=== PATIENT | male | born 1945 | race Caucasian/White ===

== ENCOUNTER 2016-12-26 21:10 | Emergency (ER) | payer MEDICARE, OTHER ==
--- NOTE | ~2016-12-26 | DS ---
PATIENT'S NAME: SERGE AGUILAR [facility] AGE: 71 Y [address] ROOM: [place] [address] LOCATION: [facility] ADMIT DATE: 12/26/2016 Discharge Summary DISCHARGE DATE: 12/26/2016 FAMILY PHYSICIAN: Physician, Unknown ATTENDING PHYSICIAN: Geo Chong DISCHARGE DIAGNOSIS: Fall. HOSPITAL COURSE: Serge Aguilar is a very pleasant 71-year-old gentleman, who was transferred to us after a fall at 4:00 p.m. today about 15 feet while he was working on a ladder, trimming some trees. He had positive LOC. He thinks he hit the close wire on the way down. It flipped him at head first and he hit the head first. By the time he was transferred to us, he was alert and oriented x3, amnestic to the event but otherwise completely intact. No neurological symptoms. He was found to have an open right tib-fib fractures, some left foot pain, bruising on the left foot. X-rays were done and were pending official reads. He had a CT of the head and was negative. CT of the neck showed a Steven's fracture at C1 on the left side and C2 left lateral body extending to the transverse foramina. CTA showed occlusion of the vertebral artery at that location. He also had nondisplaced left rib fractures 4-5. Since he required anticoagulation, we needed to be able to get him fixed IAN, but unfortunately, Dr. Wright came and evaluated the patient and splinted him in cast. I was unable to fix him tonight because he does not have the appropriate rods. Those have been ordered, but would not get here until tomorrow. Because of this delay and the fact that we need to get him going on anticoagulation, the decision was made with Dr. Mcmahon and Dr. Wright to transfer to the [facility]. We called Dr. Moreno who accepted him at [facility], and he will be life flighted there. We immediately start heparin drip before he leaves to start treatment of his left vertebral occlusion. He remains in a cervical collar. FINAL DIAGNOSES: Include left nondisplaced 4th, 5th rib fractures. Open right tib-fib fractures. Neuro intact. Pulses distally are good. He has been splinted by orthopedics Dr. Wright. He has C1 and C2 fracture with occlusion of the vertebra at the location of the fracture. On anticoagulation and cervical collar in place. Left foot pain, films pending. I explained the reason for the transfer to him and his family, and they are agreeable to this plan. We will get him transfer to the [facility] as soon as possible. CELESTE ALVARADO MD (JAKE) PATIENT'S NAME: SERGE AGUILAR [facility] AGE: 71 Y [address] ROOM: [place] [address] LOCATION: [facility] ADMIT DATE: 12/26/2016 Discharge Summary DISCHARGE DATE: 12/26/2016 FAMILY PHYSICIAN: Physician, Unknown ATTENDING PHYSICIAN: Geo Chong/april /[id number] CC: Isai Moreno MD d: t: 12/27/16 1244, DISCHARGE SUMMARY
--- NOTE | ~2016-12-26 | CON ---
PATIENT'S NAME: SERGE AGUILAR [facility] AGE: 71 Y [address] ROOM: [place] [address] LOCATION: [facility] ADMIT DATE: Consultation DISCHARGE DATE: FAMILY PHYSICIAN: Physician, Unknown ATTENDING PHYSICIAN: Geo Chong Corrected procedure 01/17/17 AO DATE OF CONSULTATION: 12/26/2016 ORTHOPEDIC CONSULTATION CHIEF COMPLAINT: Trauma and right leg pain. HISTORY OF PRESENT ILLNESS: Mr. Aguilar is a pleasant 71-year-old gentleman, who presented to the emergency room as a trauma by [employer] [facility] after falling 15 feet and breaking his leg. He also injured his neck. I was consulted as plain images at an outside institution indicated evidence of an open right distal tibia and fibula fractures. On presentation, the patient reports neck pain and right leg pain. He reports that he had a fall. He is lucid and conversing with me in the ER at the bedside. He has a C-spine immobilizer in place. The patient denies any previous trauma or surgery to the right leg. He notes that he is in severe pain. Aggravating factors include moving leg, manipulation of limb. Alleviating factors include rest, ice, and immobilization. Currently, the patient denies any constitutional symptoms such as fever, chills, or night sweats. He also denies any dizziness, chest pain, shortness of breath, blurred vision, nausea, vomiting, or diarrhea. REVIEW OF SYSTEMS: A 10-point review of systems is otherwise mentioned above in the HPI. The rest is negative aside from what is noted above. PAST MEDICAL HISTORY: Includes hypertension, cervical spine degenerative disease, hyperlipidemia. PAST SURGICAL HISTORY: Includes cervical spinal fusion at 2 levels. SOCIAL HISTORY: The patient still works. He lives in home with his home. He denies any alcohol, tobacco, or illicit drug use. FAMILY HISTORY: He reports hypertension in the maternal and paternal side of the family. PATIENT'S NAME: SERGE AGUILAR [facility] AGE: 71 Y [address] ROOM: [place], [place] [address] LOCATION: [facility] ADMIT DATE: Consultation DISCHARGE DATE: FAMILY PHYSICIAN: Physician, Unknown ATTENDING PHYSICIAN: Geo Chong ALLERGIES: NO KNOWN DRUG ALLERGIES. MEDICATIONS: Currently pending. VITAL SIGNS: Currently pending. GENERAL: The patient is awake and alert and oriented x3. He is in acute distress. He is complaining of neck and right leg pain. He is actively conversing with me at the bedside. HEENT: Normocephalic and atraumatic. Extraocular movements are intact. PERRLA. Moist mucous membranes. Oropharyngeal airway is clear. NECK: Supple. Trachea is in the midline. There is tenderness to the posterior cervical region. There is a C-collar in place. CARDIOVASCULAR: Regular rate and rhythm. CHEST: Normal symmetric chest. Respirations are observed bilaterally. ABDOMEN: Soft, nontender, and nondistended. PELVIS: Stable. MUSCULOSKELETAL: Right lower extremity: Focal examination of the patient's right lower extremity reveals that he is grossly neurologically intact distally. Compartments of the thigh, leg, and foot are soft. There is good capillary refill in the toes. There is palpable dorsalis pedal and posterior tibial pulses. There is a less than 1 cm focal lesion at the anterior aspect of the distal one-third region of the tibia, telephone service representative of open fracture. There is bloody drainage. There is deformity noted as well. There is tenderness to palpation at this region of the tibia and fibula. The patient actively range his toes, although he elicits pain in the leg. IMAGING DATA: Plan radiographs were obtained at an outside institution, that reveal evidence of a transverse fracture of the distal third aspect of the tibia and segmental fracture of the right distal one-third of fibula. A CT scan of the cervical spine reveals evidence of previous cervical spinal fusion at 2 levels. There also appears to be evidence of both fractures to C1 and C2. LABORATORY DATA: Laboratory value is pending. PROCEDURE: The patient was sedated. With the assistance of my PA, Husam Edwards PA-C, we performed a closed treatment of tibia/fibula shaft fractures and manipulation and provisional dressing placement and splinting of the right lower extremity. The patient tolerated this well. PATIENT'S NAME: SERGE AGUILAR [facility] AGE: 71 Y [address] ROOM: [place], [place] [address] LOCATION: [facility] ADMIT DATE: Consultation DISCHARGE DATE: FAMILY PHYSICIAN: Physician, Unknown ATTENDING PHYSICIAN: Geo Chong IMPRESSION: 1. Right Gustilo-Gerard type 1 open fracture of the distal tibia and fibula. 2. C1 and C2 cervical spinal fractures with a history of previous cervical spinal fusion, currently immobilized in C-Collar. PLAN: I had a long discussion with the patient in the presence of his regarding the right leg. I am recommending open irrigation and debridement of the leg and definitive tibial intramedullary nailing for fracture fixation. I discussed the risks, benefits, and alternatives to pursuing a surgical intervention with the patient in detail. I discussed the risks of the anesthesia, infection, bleeding, and/or injury to neurovascular structures. We will plan for surgery first thing tomorrow morning at approximately 6 a.m. Currently, I am recommending IV antibiotics and tetanus booster for the patient. He has received 2 g of Ancef today and recently was given a tetanus booster. We have placed a provisional splint and dressing for the wound in the emergency room. The patient tolerated the procedure well. Consent will be placed in the chart. The patient is agreeable to proceeding with surgery. We will plan for surgery as soon as tomorrow morning. The patient will be admitted to the trauma service. He will be nonweightbearing on the right lower extremity. They will hold heparin in anticipation of surgery tomorrow morning. MD MILTON BUSTOS/april /[id number] d: 12/27/162 t: 01/22/17 1257, CONSULTATION REPORT
--- NOTE | ~2016-12-26 | HP ---
PATIENT'S NAME: SERGE AGUILAR [facility] AGE: 71 Y [address] ROOM: [place] [address] LOCATION: [facility] ADMIT DATE: History & Physical DISCHARGE DATE: FAMILY PHYSICIAN: Physician, Unknown ATTENDING PHYSICIAN: Geo Chong DATE OF SERVICE: 12/26/2016 CHIEF COMPLAINT: Fall. HISTORY OF PRESENT ILLNESS: Mr. Aguilar is a very pleasant 71-year-old gentleman, who was trimming the trees today at around 0415 and fell hitting on a close line and flipped on his head and landed mostly on his head. He had positive LOC. He was taken to an outside facility, where initial workup was done, and he was found to have cervical fractures, open right tib-fib, couple of nondisplaced rib fractures, and was sent to us for further management. Upon arrival here, he is alert and oriented x3. Pleasant. Complaining of pain in his left foot, pain in his right leg, and neck pain and some mild chest pain to palpation only. He denies any other associated complaints or events. ALLERGIES: PLEASE SEE HOSPITAL LIST FOR COMPLETE LIST FOR ALLERGIES. HE DOES ADMIT TO AN ALLERGY TO PENICILLIN, ALTHOUGH HE GOT 2 G OF ANCEF AT THE OUTSIDE FACILITY WELL TETANUS AND DID NOT HAVE A REACTION TO THAT. MEDICATIONS: 1. He takes occasional Viagra. 2. He takes Requip for restless legs. 3. He takes Flomax for BPH. PAST MEDICAL HISTORY: BPH, restless legs syndrome. History of anterior cervical fusion, history of cholecystectomy, history of hernia repair, history of basal cell excisions, and history of melanoma excision from his face. Denies any cardiac, pulmonary, hepatic, renal disease or dysfunction. Denies history of DVT or PE. SOCIAL HISTORY: He is . Denies tobacco or alcohol use or abuse. His accompanies him here today. He is clearly quite active as he was cutting a tree at his home earlier today. PATIENT'S NAME: SERGE AGUILAR [facility] AGE: 71 Y [address] ROOM: [place], [place] [address] LOCATION: [facility] ADMIT DATE: History & Physical DISCHARGE DATE: FAMILY PHYSICIAN: Physician, Unknown ATTENDING PHYSICIAN: Geo Chong REVIEW OF SYSTEMS: A full 10-point review of systems as discussed with the patient was negative, except for as discussed above. Specifically, he denies any exertional chest pain, shortness of breath, headache, or vomiting. He denies any motor or sensory abnormality, except for pain with movement of his right ankle. PHYSICAL EXAMINATION: GENERAL: A 71-year-old gentleman, no apparent distress, comes in on an ER stretcher with a backboard and a neck brace. The backboard was removed. Since full cervical precautions, he remains in the neck brace. HEENT: His sclerae are anicteric. NECK: Supple. NEUROLOGIC: His cranial nerves 2 through 12 are grossly intact. Sensation in his face is preserved. His trachea is midline. His cervical collar is in place. There is no tenderness to palpation of the head and neck. No evidence of malocclusion. CARDIAC: Rate and rhythm is regular. LUNGS: His breathing is nonlabored. He has equal breath sounds bilaterally. He has some tenderness to palpation over the left chest wall. ABDOMEN: Soft, nontender, and nondistended. No palpable hernias. PELVIS: Stable to rocking. Hall catheter is in place. RECTAL: Good tone. No blood. EXTREMITIES: Bilateral lower extremities are warm. Brisk capillary refill. He has +2 DPs bilaterally. He has an open grade 1 tib-fib fracture on the right. He has bruising on his left first toe and pain to palpation on the anterior aspect of his proximal forefoot on the left. His motor sensation is grossly intact in all 4 extremities. No sensory abnormalities anywhere. His palpated spine, thoracic, lumbar, and sacral spine, has no abnormalities noted and no pain to palpation. He has a minor abrasion in his left anterior aspect of his lateral foot. No other lacerations are noted. LABORATORY DATA: White count is 12, hemoglobin 14.5, hematocrit 41.9, platelets are 194. INR is 1.07. PTT is 23.5. Sodium 140, potassium 3.8, chloride is 110, CO2 is 21, BUN 17, creatinine 1.0, bilirubin is 0.6, AST is 36, ALT is 23, albumin is 3.8, alkaline phosphatase is 69. Urinalysis shows some occult blood and some trace ketones. Urine screen is only positive for opiates, but he did receive 10 of morphine prior to this being checked at the outside facility. RADIOLOGY EVALUATION: CT scan of the neck shows a comminuted fracture of C1 vertebra on the right side, both anterior and posterior body, consistent with Steven fracture. PATIENT'S NAME: SERGE AGUILAR [facility] AGE: 71 Y [address] ROOM: [place], [place] [address] LOCATION: [facility] ADMIT DATE: History & Physical DISCHARGE DATE: FAMILY PHYSICIAN: Physician, Unknown ATTENDING PHYSICIAN: Geo Chong This extends into the left lateral body of C2 and extending through transverse process with extension into the transverse foramen on a noncontrast CAT scan. CT of the head was normal. CT of the chest, abdomen, and pelvis shows left fourth and fifth nondisplaced rib fractures. No other acute abnormalities. A tib-fib two views bilaterally shows a moderately displaced fracture of the distal right fibula and open fracture of the right tibia. Chest one view was unremarkable. ASSESSMENT AND PLAN: A 71-year-old gentleman, status post fall with injuries as follows: 1. Open right tib-fib fracture, grade 1, been splinted by Dr. Edwards. He already got Ancef and his tetanus at the outside facility. He will go to the OR tomorrow for washout and open reduction and internal fixation. He will remain nonweightbearing until that time. He has a C1 Steven fracture with a C2 left lateral body fracture extending to the transverse process and the left pedicle. We discussed with Dr. Mcmahon. He is going to be coming to see him as soon as he gets out of the OR. He has no neurological sequela noted at this time. We asked Dr. Mcmahon if he wants MRA versus CTA. He said that he does not need an MRA, so we will go ahead and proceed with the CTA. He will remain in cervical precautions until further decisions will be made by Dr. Mcmahon. 2. Nondisplaced left fourth and fifth rib fractures: He was given some appropriate pain control. Otherwise, admit for observation and on pain management. SCDs on the left lower extremity for prophylaxis. Orthopedics has asked that we hold off on heparin subcu at this point. After surgery, we will start this. I discussed this plan with him and his , and they had all their questions answered to their satisfaction. They are agreeable to proceeding with this plan. MD FISH SEQUEIRA (JAKE)/april /[id number] D: 33 HISTORY & PHYSICAL
== END 2016-12-26 23:36 | disposition disaster alternative care site (69) ==
LOC: GACC 21:10 → GICU 22:09 → GACC 23:36
PROC: 2W3QX1Z Immobilization of Right Lower Leg using Splint (ICD-10-PCS; principal; 2016-12-26)
DX: S06.9X9A Unspecified intracranial injury with loss of consciousness of unspecified duration, initial encounter (principal); S22.42XA Multiple fractures of ribs, left side, initial encounter for closed fracture; S12.000A Unspecified displaced fracture of first cervical vertebra, initial encounter for closed fracture; S12.100A Unspecified displaced fracture of second cervical vertebra, initial encounter for closed fracture; S82.201A Unspecified fracture of shaft of right tibia, initial encounter for closed fracture; S82.401A Unspecified fracture of shaft of right fibula, initial encounter for closed fracture; W11.XXXA Fall on and from ladder, initial encounter; Y93.H2 Activity, gardening and landscaping
CPT/HCPCS: J1644; J2270; J3010; Q9967

== ENCOUNTER → 2016-12-26 | Outpatient (CLI) | payer MEDICARE, OTHER | END | disposition disaster alternative care site (69) | LOC: GAMB 21:05 | DX: S19.9XXA Unspecified injury of neck, initial encounter (principal); W19.XXXA Unspecified fall, initial encounter | CPT/HCPCS: A0425; A0428 ==

== ENCOUNTER → 2016-12-26 | Outpatient (CLI) | payer MEDICARE, OTHER | END | disposition disaster alternative care site (69) | LOC: GAIR 23:44 | DX: S15.109A Unspecified injury of unspecified vertebral artery, initial encounter (principal); S82.2 Fracture of shaft of tibia; S12.000A Unspecified displaced fracture of first cervical vertebra, initial encounter for closed fracture; S12.100A Unspecified displaced fracture of second cervical vertebra, initial encounter for closed fracture; M54.9 Dorsalgia, unspecified; M54.2 Cervicalgia; M79.604 Pain in right leg; G89.29 Other chronic pain; I77.74 Dissection of vertebral artery; Z90.49 Acquired absence of other specified parts of digestive tract; Z90.89 Acquired absence of other organs; Z79.899 Other long term (current) drug therapy; Z88.0 Allergy status to penicillin; Z88.6 Allergy status to analgesic agent; Z88.1 Allergy status to other antibiotic agents; W11.XXXA Fall on and from ladder, initial encounter | CPT/HCPCS: A0422; A0431; A0436; J2405; J3010 ==